=== PATIENT | male | born 1965 | race Caucasian/White ===

== ENCOUNTER 2019-02-01 09:39 | Day surgery (SDC) | payer OTHER ==
[2019-01-23 16:31] VITALS: BMI 26.3
[2019-02-01] MEDS ORDERED: BUPIVACAINE HCL/PF 2.5 MG/ML - 30 ML VIAL IJ ONE (10:50)
[2019-02-01] MEDS ORDERED: ROPIVACAINE HCL 0.5% 30ML VIAL ONE (11:07)
[2019-02-01] MEDS ORDERED: MIDAZOLAM HCL 2 MG/2 ML SINGLE DOSE VIAL ONE (11:07)
[2019-02-01] MEDS ORDERED: DEXAMETHASONE SOD PHOSPHATE/PF 10 MG/ML SDV ONE (11:07)
[2019-02-01] MEDS ORDERED: SUCCINYLCHOLINE CHLORIDE 200 MG/10 ML SYRINGE ONE (11:26)
[2019-02-01] MEDS ORDERED: PROPOFOL 20 ML ONE ×2 (11:26→11:27)
[2019-02-01] MEDS ORDERED: ceFAZolin SODIUM 1 GM VIAL ONE (11:29)
[2019-02-01] MEDS ORDERED: DEXAMETHASONE SOD PHOSPHATE 4 MG/1 ML VIAL ONE (11:29)
[2019-02-01] MEDS ORDERED: ONDANSETRON 4 MG/2 ML VIAL ONE (11:29)
[2019-02-01] MEDS ORDERED: GUM MASTIC/STORAX/MSAL/ALCOHOL 1 DRP DROPSBTL MC ONE (12:24)
[2019-02-01 13:04] VITALS: PULSE 79
[2019-02-01 13:16] VITALS: BP 121/74; TEMP 98
[2019-02-01] MEDS ORDERED: oxyCODONE HCL 5 MG TABLET PO PRN (14:18)
[2019-02-01] MEDS ORDERED: ONDANSETRON 4 MG/2 ML VIAL IVPUSH PRN (14:18)
[2019-02-01] MEDS ORDERED: LACTATED RINGERS SOLUTION 1,000 ML IV SCH (14:30)
--- NOTE | 2019-02-06 14:05 | OP ---
DATE OF OPERATION: 02/01/2019 PREOPERATIVE DIAGNOSIS: Left basal joint arthritis. POSTOPERATIVE DIAGNOSIS: Left basal joint arthritis. OPERATIVE PROCEDURES: 1. Left basal joint arthroplasty. 2. Left basal joint tendon transfer. SURGEON: Priscilla Park MD BENEFITS PROCESSOR: KATHRYN Heck ANESTHESIA: Regional. COMPLICATIONS: None. ESTIMATED BLOOD LOSS: Minimal. INDICATIONS FOR PROCEDURE: The patient is a 53-year-old male with the above findings, indicated for operative treatment. Risks, benefits, and alternatives were discussed with the patient at length. Proper informed consent was obtained. DESCRIPTION OF PROCEDURE: After proper identification of patient and correct operative site, the patient was brought to the operating room and placed supine on the operating room table with all prominences well padded. Sedation and regional anesthesia were given. Left upper extremity was prepped and draped in the usual sterile fashion. A well-padded tourniquet was placed over a sterile prep. Esmarch bandage used to exsanguinate left upper extremity. Tourniquet was inflated to 250 mmHg. A curvilinear incision made at the base of the thumb with a Brock approach. Incision was taken sharply through skin with blunt and sharp dissection through subcutaneous tissues, taking care to protect neurovascular structures. Thenar muscles were elevated off of the carpometacarpal joint and the carpometacarpal joint with capsule was divided longitudinally. Severe arthrosis of the basal joint was noted and the trapezium was excised in whole using subperiosteal elevation. Arthroplasty was then performed using a whhygenjpa-[id number]-dpuo technique by placing an Arthrex internal brace from the base of the 2nd metacarpal to the base of the thumb metacarpal with proper tensioning on the arthroplasty space when positioned. This was done with two SwiveLock anchors and a FiberTape suture. Full range of motion was achieved with good stability. The capsule was then repaired and augmented using a tendon transfer of the 1st dorsal compartment tendons. The skin was repaired in layers using 4-0 Vicryl and 4-0 Monocryl suture. Steri-Strips and sterile dressings were placed. Splint was placed. Patient reversed from anesthesia and brought to recovery room in stable condition. Lucho Wylie, the multimedia assistant, was integral throughout the procedure. Procedure could not have been performed without a skilled operative multimedia assistant. PRISCILLA PARK M.D. [id number]
== END 2019-02-01 13:46 | disposition home or self-care (01) ==
LOC: FASU 09:39
PROVIDERS: ATTEND Orthopaedic Surgery Hand Surgery
PROC: 0LX80ZZ Transfer Left Hand Tendon, Open Approach (ICD-10-PCS; principal; 2019-02-01 11:00)
DX: M18.12 Unilateral primary osteoarthritis of first carpometacarpal joint, left hand (principal)

== ENCOUNTER 2020-02-21 10:33 | Day surgery (SDC) | payer OTHER ==
[2020-02-19 13:30] VITALS: BMI 26.0
[2020-02-21] MEDS ORDERED: BUPIVACAINE HCL/PF 0.25% (2.5MG/ML) 10 ML VIAL ONE (10:58)
[2020-02-21] MEDS ORDERED: MIDAZOLAM HCL 2 MG/2 ML SINGLE DOSE VIAL ONE (11:22)
[2020-02-21] MEDS ORDERED: ROPIVACAINE HCL 0.5% 30ML VIAL ONE (11:22)
[2020-02-21] MEDS ORDERED: LIDOCAINE HCL/PF 2% SDV 5ML VIAL ONE (11:40)
[2020-02-21] MEDS ORDERED: PROPOFOL 20 ML ONE (11:41)
[2020-02-21] MEDS ORDERED: EPHEDRINE SULFATE/0.9% NACL/PF 50 MG/10 ML SYRINGE NR ONE (12:22)
[2020-02-21 13:18] VITALS: TEMP 97.6
[2020-02-21] MEDS ORDERED: PROMETHAZINE HCL 25 MG/1 ML VIAL IVPUSH PRN (13:37)
[2020-02-21] MEDS ORDERED: ONDANSETRON 4 MG/2 ML VIAL IVPUSH PRN (13:37)
[2020-02-21] MEDS ORDERED: oxyCODONE HCL 5 MG TABLET PO PRN ×2 (13:37)
[2020-02-21 14:34] VITALS: BP 134/88; PULSE 72
== END 2020-02-21 14:35 | disposition home or self-care (01) ==
LOC: FASU 10:33
PROVIDERS: ATTEND Orthopaedic Surgery Hand Surgery
PROC: 0RUS0KZ Supplement Right Carpometacarpal Joint with Nonautologous Tissue Substitute, Open Approach (ICD-10-PCS; 2020-02-21)
PROC: 0LX70ZZ Transfer Right Hand Tendon, Open Approach (ICD-10-PCS; principal; 2020-02-21 11:54)
DX: M18.11 Unilateral primary osteoarthritis of first carpometacarpal joint, right hand (principal)
CPT/HCPCS: 94760